=== PATIENT | female | born 1940 | race Caucasian/White ===

== ENCOUNTER 2018-04-24 19:05 | Emergency (ER) | payer OTHER ==
--- OUTSIDE RECORDS SUMMARY | 2018-04-24 19:08 | XMS REPORT | Clinical Summary ---
:1940 Author Organization [facility] Address [address] [place] [id number] Care Team Providers Name Role Phone Bud Osborne MD Primary Care Provider Allergies Active Allergy Reactions Severity Noted Date Comments Codeine GI Intolerance 08/25/2016 Nausea, vomiting Current Medications Prescription Sig. Disp. Refills Start Date End Date Status citalopram (CeleXA) 40 MG Take 20 mg by mouth 10/31/2015 Active tablet daily. omeprazole (PriLOSEC) 40 Take 40 mg by mouth Active MG capsule daily. sotalol (BETAPACE) 80 MG Take 40 mg by mouth Active tablet 2 (two) times a day. calcium carbonate-vitamin Take 1 tablet by Active D3 500 mg-200 unit per mouth 2 (two) times tablet a day with meals. ALPRAZolam (XANAX) 0.5 MG Take 0.25 mg by Active tablet mouth nightly as needed for sleep. aspirin (ECOTRIN) 81 MG Take 81 mg by mouth Active enteric coated tablet daily. Active Problems Problem Noted Date Colitis 08/25/2016 Urinary tract infection 08/23/2015 Dysuria 08/23/2015 Family History Medical History Relation Name Comments Alzheimer's disease Father Dementia Mother Endometrial cancer Mother Relation Name Status Comments Father Mother Alive Social History Tobacco Use Types Packs/Day Years Used Date Former Smoker Cigarettes Quit: 1979 Smokeless Tobacco: Never Used Tobacco Cessation: Counseling Given: No Alcohol Use Drinks/Week oz/Week Comments Yes 1 Glasses of wine 0.6 socially Sex Assigned at Date Recorded Not on file Last Filed Vital Signs Not on file Plan of Treatment Health Maintenance Due Date Last Done Comments SHINGRIX VACCINE (#1) 02/21/1988 ZOSTER VACCINE 1998 PNEUMOCOCCAL POLYSACCHARIDE VACCINE AGE 65 AND OVER 2003 PNEUMOCOCCAL-13 2003 INFLUENZA VACCINE 01/22/2018 Implants Implanted Type Area Lime Sludge Kiln Operator Device Expiration Model / Identifier Date Serial / Lot Stent Uretl S-Flx Kwart Retro-Inject 6fr 24cm - [id number] Peripheral or N/A: MISTY [employer] 06/05/2019 [id number] / Implanted: 09/07/2016 (Quantity not on file) Biliary Stents N/A / [id number] Implant Bulking Agent Coaptite Injctbl 1ml - [id number] Urological N/A: [facility] [id number] / Implanted: 05/23/2016 (Quantity not on file) Implants or N/A UROLOGY/ GYNECOL / Sets OGY Implant Bulking Agent Coaptite Injctbl 1ml - [id number] Urological N/A: [facility] [id number] / Implanted: 05/23/2016 (Quantity not on file) Implants or N/A UROLOGY/ GYNECOL / Sets OGY Results Not on fileafter 04/23/2017 Insurance Payer Benefit Plan / Group Subscriber ID Type Phone Address MEDICARE MEDICARE PART A AND B xxxxxxxxxx Medicare [place], [place] [employer] xxxxxxxxxx Commercial [phone] [address]
[2018-04-24] MEDS ORDERED: NA CHLORIDE 0.9% 1,000 ML ONE (20:02)
[2018-04-24] MEDS ORDERED: METOPROLOL TARTRATE 5 MG/5 ML INJ IV ONE (20:02)
[2018-04-24 20:10] LABS: Absolute Lymphocytes (CBC) 3.8 K/uL (0.7-4.9); Absolute Monocytes 1.2 K/uL (0.1-1.3); Absolute Neutrophil 4.3 K/uL (1.8-8.0); Hematocrit 36.4 % (36.0-45.0); Lymphocytes % 38.9 % (15.3-44.8); MCH 28.9 pg (27.0-35.0); MCV 87.1 fL (80-100); MPV 8.1 fL (7.6-11.3); Monocytes % 12.6 % (3.3-12.3); RBC Red Blood Cell Count 4.18 M/uL (3.86-4.86)
[2018-04-24 20:14] LABS: Protime INR 0.97
[2018-04-24 20:31] LABS: ALT/SGPT 19 U/L (12-78); AST/SGOT 15 U/L (15-37); Albumin 3.5 g/dL (3.4-5.0); Alkaline Phosphatase 87 U/L (45-117); BUN Blood Urea Nitrogen 12 mg/dL (7-18); Bicarbonate 29 mmol/L (21-32); Bilirubin Total 0.3 mg/dL (0.2-1.0); Glucose Level 92 mg/dL (74-106); Magnesium 2.3 mg/dL (1.8-2.4); NT PRO-BNP 647 pg/mL (<450); Potassium 3.8 mmol/L (3.5-5.1); Protein, Total 7.5 g/dL (6.4-8.2); Sodium Level 142 mmol/L (136-145); Troponin (Emerg Dept Use Only) < 0.02 ng/mL (0.0-0.045)
--- NOTE | 2018-04-24 20:53 | RAD REPORT ---
EXAM DESCRIPTION: RAD - Chest Single View - 04/24/2018 8:28 pm CLINICAL HISTORY: Atrial fibrillation, chest tightness COMPARISON: July 2016 TECHNIQUE: AP portable chest image was obtained 2021 hours . FINDINGS: No peripheral mass or consolidation. Vasculature within normal limits. Interstitial markin gs are similar to slightly increased over comparison. Heart size is normal. No measurable pleural eff usion and no pneumothorax. No acute bony abnormality seen. No acute aortic findings suspected. IMPRESSION: No focal mass, consolidation or significant failure finding. Interstitial markings are similar to slightly increased over comparison. Minimal interstitial edema o r infiltrate possible.
[2018-04-24 20:54] LABS: Urine Blood TRACE (NEG); Urine Glucose NEGATIVE (NEG); Urine Protein NEGATIVE (NEG); Urine Specific Gravity 1.015 (1.005-1.030)
--- NOTE | 2018-04-24 21:37 | EDPHYS ---
Physician Documentation [facility] Name: Paty Hendricks Age: 78 yrs Sex: Female : 1940 Arrival Date: 04/24/2018 Time: 19:07 Bed 30 Private MD: Gallito Osborne C ED Physician Missael Hernandez HPI: 04/24 21:24 This 78 yrs old Female presents to ER via Ambulatory with complaints of ps1 Irregular Pulse. 21:24 patient has a history of paroxysmal atrial fibrillation. Patient went to get laser fat ps1 removal and started having palpitations and noticed her HR was elevated on wearable HR monitor. She is supposed to be on sotalol 80mg and is taking 40mg and 81mg ASA daily. Patient managed by Dr. Araiza. On IV stick, patient spontaneously converted to NSR. . Historical: - Allergies: 19:15 Codeine; aj 19:15 Macrobid; aj - Home Meds: 19:39 citalopram 40 mg tab 1 tab once daily [Active]; Flonase 50 mcg/actuation Nasal spsn 1 mg2 spray 2 times per day [Active]; Multi-Vitamin HP/Minerals Oral daily [Active]; nitrofurantoin macrocrystal 100 mg Oral cap 1 cap once daily [Active]; PrimaCal daily [Active]; Sorine 80 mg Oral tab 0.5 tab 2 times per day [Active]; - PMHx: 19:15 Atrial Fib; Depression; aj - Immunization history:: Adult Immunizations up to date. - Social history:: Smoking status: Patient/guardian denies using tobacco. - Ebola Screening: : Patient negative for fever greater than or equal to 101.5 degrees Fahrenheit, and additional compatible Ebola Virus Disease symptoms Patient denies exposure to infectious person Patient denies travel to an Ebola-affected area in the 21 days before illness onset No symptoms or risks identified at this time. ROS: 21:24 Constitutional: Negative for fever, chills, and weight loss, Eyes: Negative for injury, ps1 pain, redness, and discharge, Respiratory: Negative for shortness of breath, cough, wheezing, and pleuritic chest pain, Abdomen/GI: Negative for abdominal pain, nausea, vomiting, diarrhea, and constipation, Back: Negative for injury and pain, MS/Extremity: Negative for injury and deformity, Skin: Negative for injury, rash, and discoloration, Neuro: Negative for headache, weakness, numbness, tingling, and seizure. 21:24 Cardiovascular: Positive for palpitations. Exam: 21:24 Constitutional: This is a well developed, well nourished patient who is awake, alert, ps1 and in no acute distress. Head/Face: Normocephalic, atraumatic. Eyes: Pupils equal round and reactive to light, extra-ocular motions intact. Lids and lashes normal. Conjunctiva and sclera are non-icteric and not injected. Chest/axilla: Normal chest wall appearance and motion. Nontender with no deformity. No lesions are appreciated. Respiratory: Lungs have equal breath sounds bilaterally, clear to auscultation and percussion. No rales, rhonchi or wheezes noted. No increased work of breathing, no retractions or nasal flaring. Abdomen/GI: Soft, non-tender, with normal bowel sounds. No distension or tympany. No guarding or rebound. No evidence of tenderness throughout. Skin: Warm, dry with normal turgor. Normal color with no rashes, no lesions, and no evidence of cellulitis. MS/ Extremity: Pulses equal, no cyanosis. Neurovascular intact. Full, normal range of motion. Neuro: Awake and alert, GCS 15, oriented to person, place, time, and situation. Cranial nerves II-XII grossly intact. Sensory grossly intact. Psych: Awake, alert, with orientation to person, place and time. Behavior, mood, and affect are within normal limits. 21:24 Cardiovascular: Rate: tachycardic, Rhythm: irregularly irregular, Pulses: no pulse deficits are appreciated. Vital Signs: 19:15 BP 135 / 82; Pulse 103; Resp 20; Temp 97.5; Pulse Ox 98% on R/A; Weight 83.91 kg; aj Height 5 ft. 7 in. (170.18 cm); 20:11 BP 159 / 99; Pulse 62; Resp 18; Pulse Ox 100% on R/A; Pain 0/10; mg2 21:45 BP 145 / 75; Pulse 62; Resp 18; Pulse Ox 100% on R/A; Pain 0/10; mg2 19:15 Body Mass Index 28.97 (83.91 kg, 170.18 cm) aj MDM: 19:22 Patient medically screened. ps1 20:06 Data reviewed: vital signs, nurses notes, lab test result(s), EKG, and as a result, I ps1 will discharge patient. Data interpreted: pharmaceutical officer: rate is 61 beats/min, rhythm is normal sinus rhythm, Pulse oximetry:. Counseling: I had a detailed discussion with the patient and/or guardian regarding: the historical points, exam findings, and any diagnostic results supporting the discharge/admit diagnosis, the need for outpatient follow up, for definitive care, a glass sagger. Special discussion: Based on the patient's history, exam, and Dx evaluation, there is no indication for emergent intervention or inpatient Tx. It is understood by the patient/guardian that if the Sx's persist or worsen they need to return immediately for re-evaluation. 04/24 19:49 Order name: CBC with Diff; Complete Time: 20:15 ps1 04/24 19:49 Order name: Magnesium; Complete Time: 20:44 ps1 04/24 19:49 Order name: NT PRO-BNP; Complete Time: 20:44 ps1 04/24 19:49 Order name: PT-INR; Complete Time: 20:44 ps1 04/24 19:49 Order name: Troponin (emerg Dept Use Only); Complete Time: 20:44 ps1 04/24 19:49 Order name: CMP; Complete Time: 20:44 ps1 04/24 19:49 Order name: XRAY Chest (1 view); Complete Time: 21:02 ps1 04/24 19:49 Order name: EKG; Complete Time: 19:50 ps1 04/24 19:49 Order name: Cardiac monitoring; Complete Time: 19:53 ps1 04/24 19:49 Order name: EKG - Nurse/Tech; Complete Time: 19:53 ps1 04/24 19:49 Order name: IV Saline Lock; Complete Time: 19:53 ps1 04/24 20:05 Order name: Urine Dipstick--Ancillary (enter results); Complete Time: 21:02 ms 04/24 19:49 Order name: Labs collected and sent; Complete Time: 19:53 ps1 04/24 19:49 Order name: O2 Per Protocol; Complete Time: 19:53 ps1 04/24 19:49 Order name: O2 Sat Monitoring; Complete Time: 19:53 ps1 04/24 19:49 Order name: Urine Dipstick-Ancillary (obtain specimen); Complete Time: 20:10 ps1 04/24 20:12 Order name: EKG - Nurse/Tech; Complete Time: 20:12 mg2 EC:27 Rate is 116 beats/min. Rhythm is irregularly irregular. QRS [place] is Normal. QRS ps1 interval is prolonged. QT interval is normal. No Q waves. ST Segment is depressed in leads V3, V4, V5. Clinical impression: Atrial Fibrillation and Afib RVR. 20:06 Rate is 57 beats/min. Rhythm is regular. QRS [place]ams is Normal. CO interval is normal. QRS ps1 interval is normal. QT interval is normal. Q waves are Old. T waves are Normal. No ST changes noted. Clinical impression: Normal ECG and Sinus bradycardia. Interpreted by me. Administered Medications: 20:10 Drug: NS 0.9% 1000 ml Route: IV; Rate: 1 bolus; Site: left antecubital; mg2 21:00 Follow up: Response: No adverse reaction; IV Status: Completed infusion mg2 20:12 Not Given (Hemodynamic Parameters): Metoprolol 5 mg IVP once; Hold for SBP <100 or HR mg2 <60. Disposition: 04/24/18 21:36 Discharged to Home. Impression: Atrial fibrillation and flutter. - Condition is Stable. - Discharge Instructions: Atrial Fibrillation, [id number]. - Medication Reconciliation Form, Thank You Letter, Antibiotic Education, Prescription Opioid Use form. - Follow up: Gallito Osborne MD; When: 2 - 3 days; Reason: Recheck today's complaints, Continuance of care, Re-evaluation by your physician. Follow up: Hayden Araiza MD; When: Tomorrow; Reason: Further diagnostic work-up, Recheck today's complaints, Continuance of care, Re-evaluation by your physician. Follow up: Emergency Department; When: As needed; Reason: Trouble breathing, Worsening of condition. - Problem is an acute exacerbation. - Symptoms are resolved. Signatures: Dispatcher [employer] EDShawna Kaur RN RN aj Singer, Phillip, MD MD ps1 Joseph Cui RN RN mg2 Corrections: (The following items were deleted from the chart) 21:49 21:36 04/24/2018 21:36 Discharged to Home. Impression: Atrial fibrillation and flutter. mg2 Condition is Stable. Forms are Medication Reconciliation Form, Thank You Letter, Antibiotic Education, Prescription Opioid Use. Follow up: Gallito Osborne; When: 2 - 3 days; Reason: Recheck today's complaints, Continuance of care, Re-evaluation by your physician. Follow up: Hayden Araiza; When: Tomorrow; Reason: Further diagnostic work-up, Recheck today's complaints, Continuance of care, Re-evaluation by your physician. Follow up: Emergency Department; When: As needed; Reason: Trouble breathing, Worsening of condition. Problem is an acute exacerbation. Symptoms are resolved. ps1
--- NOTE | 2018-04-24 21:37 | ER ---
Nurse's Notes [facility] Name: Paty Hendricks Age: 78 yrs Sex: Female : 1940 Arrival Date: 04/24/2018 Time: 19:07 Bed 30 Private MD: Gallito Osborne C Diagnosis: Atrial fibrillation and flutter Presentation: 04/24 19:14 Presenting complaint: Patient states: Palpitations all day. Reports tightness in chest. aj Transition of care: patient was not received from another setting of care. Onset of symptoms was April 24, 2018. Risk Assessment: Do you want to hurt yourself or someone else? Patient reports no desire to harm self or others. Initial Sepsis Screen: Does the patient meet any 2 criteria? No. Patient's initial sepsis screen is negative. Does the patient have a suspected source of infection? No. Patient's initial sepsis screen is negative. Care prior to arrival: None. 19:14 Method Of Arrival: Ambulatory aj 19:14 Acuity: NANCY 3 aj Triage Assessment: 19:15 General: Appears in no apparent distress. comfortable, Behavior is calm, cooperative, aj appropriate for age. Pain: Denies pain. Neuro: Level of Consciousness is awake, alert, obeys commands, Oriented to person, place, time, situation, Appropriate for age. Cardiovascular: Reports palpitations, Denies chest pain, Capillary refill < 3 seconds in bilateral fingers Patient's skin is warm and dry. Respiratory: Airway is patent Respiratory effort is even, unlabored, Respiratory pattern is regular, symmetrical. Derm: Skin is intact, is healthy with good turgor, Skin is pink, warm \T\ dry. normal. Historical: - Allergies: 19:15 Codeine; aj 19:15 Macrobid; aj - Home Meds: 19:39 citalopram 40 mg tab 1 tab once daily [Active]; Flonase 50 mcg/actuation Nasal spsn 1 mg2 spray 2 times per day [Active]; Multi-Vitamin HP/Minerals Oral daily [Active]; nitrofurantoin macrocrystal 100 mg Oral cap 1 cap once daily [Active]; PrimaCal daily [Active]; Sorine 80 mg Oral tab 0.5 tab 2 times per day [Active]; - PMHx: 19:15 Atrial Fib; Depression; aj - Immunization history:: Adult Immunizations up to date. - Social history:: Smoking status: Patient/guardian denies using tobacco. - Ebola Screening: : Patient negative for fever greater than or equal to 101.5 degrees Fahrenheit, and additional compatible Ebola Virus Disease symptoms Patient denies exposure to infectious person Patient denies travel to an Ebola-affected area in the 21 days before illness onset No symptoms or risks identified at this time. Screenin:36 Abuse screen: Denies threats or abuse. Denies injuries from another. Nutritional mg2 screening: No deficits noted. Tuberculosis screening: No symptoms or risk factors identified. Fall Risk None identified. Assessment: 19:36 General: Appears in no apparent distress. comfortable, Behavior is calm, cooperative. mg2 Pain: Complains of pain in chest Pain does not radiate. Quality of pain is described as tightness Pain began gradually, this morning Is intermittent. Neuro: Level of Consciousness is awake, alert, obeys commands, Oriented to person, place, time, situation. Cardiovascular: Capillary refill < 3 seconds Patient's skin is warm and dry. Respiratory: Airway is patent Respiratory effort is even, unlabored, Respiratory pattern is regular, symmetrical. GI: No signs and/or symptoms were reported involving the gastrointestinal system. : No signs and/or symptoms were reported regarding the genitourinary system. EENT: No signs and/or symptoms were reported regarding the EENT system. Derm: Skin is intact, is healthy with good turgor, Skin is pink, warm \T\ dry. normal. Musculoskeletal: No signs and/or symptoms reported regarding the musculoskeletal system. Vital Signs: 19:15 BP 135 / 82; Pulse 103; Resp 20; Temp 97.5; Pulse Ox 98% on R/A; Weight 83.91 kg; aj Height 5 ft. 7 in. (170.18 cm); 20:11 BP 159 / 99; Pulse 62; Resp 18; Pulse Ox 100% on R/A; Pain 0/10; mg2 21:45 BP 145 / 75; Pulse 62; Resp 18; Pulse Ox 100% on R/A; Pain 0/10; mg2 19:15 Body Mass Index 28.97 (83.91 kg, 170.18 cm) ED Course: 19:07 Patient arrived in ED. ds1 19:07 Gallito Osborne MD is Private Physician. ds1 19:14 Triage completed. aj 19:16 Arm band placed on left wrist. Patient placed in an exam room. aj 19:22 Missael Hernandez MD is Attending Physician. ps1 19:26 Joseph Cui, RN is Primary Nurse. mg2 19:37 Patient has correct armband on for positive identification. trust and estates paralegal on. Pulse mg2 ox on. NIBP on. 19:39 No provider procedures requiring assistance completed. Patient maintains SpO2 mg2 saturation greater than 95% on room air. 19:40 Inserted saline lock: 20 gauge in left antecubital area, using aseptic technique. Blood mg2 collected. 20:27 XRAY Chest (1 view) In Process Unspecified. EDMS 21:36 Gallito Osborne MD is Referral Physician. ps1 21:36 Hayden Araiza MD is Referral Physician. ps1 21:47 IV discontinued, intact, bleeding controlled, No redness/swelling at site. Pressure mg2 dressing applied. Administered Medications: 20:10 Drug: NS 0.9% 1000 ml Route: IV; Rate: 1 bolus; Site: left antecubital; mg2 21:00 Follow up: Response: No adverse reaction; IV Status: Completed infusion mg2 20:12 Not Given (Hemodynamic Parameters): Metoprolol 5 mg IVP once; Hold for SBP <100 or HR mg2 <60. Outcome: 21:36 Discharge ordered by MD. ps1 21:48 Discharged to home ambulatory. mg2 21:48 Condition: stable 21:48 Discharge instructions given to patient, family, Instructed on discharge instructions, follow up and referral plans. Demonstrated understanding of instructions, follow-up care. 21:49 Patient left the ED. mg2 Signatures: Dispatcher [employer] EDGA Shawna Benitez, RN RN Madison Nicholson ds1 Missael Hernandez MD MD ps1 Joseph Cui, MING RN mg2
--- NOTE | 2018-04-25 08:58 | EKG ---
Test Date: 2018-04-24 Test Time: 19:27:01 Yard Crane Operator: MEASUREMENT RESULTS: Intervals: Rate: 116 OK: QRSD: 118 QT: 380 QTc: 528 [place]: P: OK: QRS: -47 T: 24 INTERPRETIVE STATEMENTS: Atrial fibrillation with rapid ventricular response Incomplete right bundle branch block Left axis Nonspecific ST and T wave abnormality, probably digitalis effect Abnormal ECG Compared to ECG 08/15/2016 07:27:09 Incomplete right bundle-branch block now present ST (T wave) deviation now present Sinus bradycardia no longer present Atrial premature complex(es) no longer present Electronically Signed On 04-25-18 08:58:26 CDT by Toro Phan
--- NOTE | 2018-04-25 08:58 | EKG ---
Test Date: 2018-04-24 Test Time: 20:06:26 Patient Relations Coordinator: MEASUREMENT RESULTS: Intervals: Rate: 57 MA: 174 QRSD: 122 QT: 470 QTc: 457 [place]: P: -1 MA: 174 QRS: -26 T: 23 INTERPRETIVE STATEMENTS: Sinus bradycardia Incomplete right bundle branch block Abnormal ECG Compared to ECG 04/24/2018 19:27:01 Myocardial infarct finding now present Atrial fibrillation no longer present Left anterior fascicular block no longer present ST (T wave) deviation no longer present Electronically Signed On 04-25-18 08:57:55 CDT by Toro Phan
== END 2018-04-24 21:49 | disposition home or self-care (01) ==
LOC: ER 19:05
DX: I48.91 Unspecified atrial fibrillation (principal); I48.92 Unspecified atrial flutter
CPT/HCPCS: 36415; 71045; 80053; 81003; 83735; 83880; 84484; 85025; 85610; 93005 ×2; 96360; 99285; J7030

== ENCOUNTER 2019-03-08 20:23 | Emergency (ER) | payer OTHER ==
--- OUTSIDE RECORDS SUMMARY | 2019-03-08 20:25 | XMS REPORT | Clinical Summary ---
:1940 Author Organization [facility] Address [address] [place] [address] Care Team Providers Name Role Phone Bud Osborne MD Primary Care Provider Allergies Active Allergy Reactions Severity Noted Date Comments Codeine GI Intolerance 08/25/2016 Nausea, vomiting Medications Medication Sig Dispensed Refills Start Date End Date Status citalopram (CeleXA) 40 Take 20 mg by 0 10/31/2015 Active MG tablet mouth daily. omeprazole (PriLOSEC) Take 40 mg by 0 Active 40 MG capsule mouth daily. sotalol (BETAPACE) 80 Take 40 mg by 0 Active MG tablet mouth 2 (two) times a day. calcium Take 1 tablet by 0 Active carbonate-vitamin D3 mouth 2 (two) 500 mg-200 unit per times a day with tablet meals. ALPRAZolam (XANAX) 0.5 Take 0.25 mg by 0 Active MG tablet mouth nightly as needed for sleep. aspirin (ECOTRIN) 81 Take 81 mg by 0 Active MG enteric coated mouth daily. tablet Active Problems Problem Noted Date Colitis 08/25/2016 [...] oz/Week Comments Yes 1 Glasses of wine 1.0 socially Sex Assigned at Date Recorded Not on file Job Start Date Occupation Industry Not on file Not on file Not on file Travel History Travel Start Travel End No recent travel history available. Last Filed Vital Signs Not on file Plan of Treatment Health Maintenance Due Date Last Done Comments SHINGLES VACCINES (#1) 02/21/1988 65+ PNEUMOCOCCAL VACCINE (1 of 2 - PCV13) 2003 INFLUENZA VACCINE 01/22/2019 Implants Implanted Type Area Mower Mechanic Device Shelf Model / Identifier Expiration Serial / Date Lot Stent Mateo S-Flx Kwart Retro-Inject 6fr 24cm - [id number] Peripheral or N/A: [employer] 06/05/2019 [id number] / Implanted: 09/07/2016 at [facility] (Quantity not on file) Biliary Stents N /A / [id number] Implant Bulking Agent Coaptite Injctbl 1ml - [id number] Urological N/A: [facility] [id number] / Implanted: 05/23/2016 at [facility] (Quantity not on file) Implants or N/A UROLOGY/GYNECOL / Sets OGY Implant Bulking Agent Coaptite Injctbl 1ml - [id number] Urological N/A: [facility] [id number] / Implanted: 05/23/2016 at [facility] (Quantity not on file) Implants or N/A UROLOGY/GYNECOL / Sets OGY Results Not on fileafter 03/07/2018 Insurance Payer Benefit Plan / Subscriber ID Effective Dates Phone Address Type Group MEDICARE MEDICARE PART A xxxxxxxxxx 2003-[place], [place] Medicare AND B t [employer] xxxxxxxxxx 2016-[employer] t Advance Directives For more information, please contact: [phone] Code Status Date Activated Date Inactivated Comments Full Code 08/25/2016 11:05 AM 08/30/2016 12:29 PM Code Status decision reached by: Patient
[2019-03-08 21:05] LABS: Absolute Lymphocytes (CBC) 3.2 K/uL (0.7-4.9); Basophils % 1.2 % (0-1.3); Hematocrit 39.5 % (36.0-45.0); Lymphocytes % 29.5 % (15.3-44.8); RBC Red Blood Cell Count 4.34 M/uL (3.86-4.86)
[2019-03-08 21:07] LABS: Protime INR 0.96
[2019-03-08 21:23] LABS: ALT/SGPT 19 U/L (12-78); AST/SGOT 14 U/L (15-37); Albumin 3.6 g/dL (3.4-5.0); Alkaline Phosphatase 85 U/L (45-117); BUN Blood Urea Nitrogen 18 mg/dL (7-18); Bicarbonate 27 mmol/L (21-32); Bilirubin Direct 0.1 mg/dL (0-0.2); Bilirubin Total 0.3 mg/dL (0.2-1.0); Glucose Level 104 mg/dL (74-106); Magnesium 1.9 mg/dL (1.8-2.4); NT PRO-BNP 389 pg/mL (<450); Potassium 4.1 mmol/L (3.5-5.1); Protein, Total 7.6 g/dL (6.4-8.2); Sodium Level 142 mmol/L (136-145); Troponin (Emerg Dept Use Only) < 0.02 ng/mL (0.0-0.045)
[2019-03-08] MEDS ORDERED: ONDANSETRON 4 MG/2 ML VIAL ONE (21:30)
[2019-03-08] MEDS ORDERED: MIDAZOLAM HCL 2 MG/2 ML INJ ONE (21:33)
[2019-03-08] MEDS ORDERED: FENTANYL CITR 100 MCG/2 ML ONE (21:33)
[2019-03-08] MEDS ORDERED: NA CHLORIDE 0.9% 1,000 ML ONE (23:08)
[2019-03-08] MEDS ORDERED: APIXABAN 5 MG TABLET ONE (23:57)
--- NOTE | 2019-03-09 00:08 | ER ---
Nurse's Notes [facility] Name: Paty Hendricks Age: 79 yrs Sex: Female : 1940 Arrival Date: 03/08/2019 Time: 20:29 Bed 5 Private MD: Diagnosis: Atrial fibrillation and flutter Presentation: 03/08 20:30 Presenting complaint: Patient states: heart rate has been up and down all day starting dm5 about 1330, 240 mg sotalol over 6 hours. normally takes 40 mg per day. Pt states that Dr. Adams told her to take multiple doses of Sotalol when this happens. 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 Transition of care: patient was not received from another setting of care. Onset of symptoms was March 08, 2019. Risk Assessment: Do you want to hurt yourself or someone else? Patient reports no desire to harm self or others. Initial Sepsis Screen: Does the patient meet any 2 criteria? No. Patient's initial sepsis screen is negative. Does the patient have a suspected source of infection? No. Patient's initial sepsis screen is negative. Care prior to arrival: None. 20:30 Method Of Arrival: Ambulatory dm5 20:30 Acuity: NANCY 2 dm5 Historical: - Allergies: 20:34 Codeine; dm5 20:34 Macrobid; dm5 20:34 seasonal allergies; dm5 - PMHx: 20:34 Atrial Fib; Depression; dm5 - PSHx: 20:34 back surgey; Tonsillectomy; Hysterectomy; Knee surgery; dm5 - Immunization history:: Adult Immunizations. - Social history:: Smoking status: Patient/guardian denies using tobacco. - Ebola Screening: : Patient negative for fever greater than or equal to 101.5 degrees Fahrenheit, and additional compatible Ebola Virus Disease symptoms Patient denies exposure to infectious person Patient denies travel to an Ebola-affected area in the 21 days before illness onset. Screenin:11 Abuse screen: Denies threats or abuse. Denies injuries from another. Nutritional rr5 screening: No deficits noted. Tuberculosis screening: No symptoms or risk factors identified. Fall Risk IV access (20 points). Total Choudhary Fall Scale indicates No Risk (0-24 pts). Assessment: 20:40 General: Appears in no apparent distress. comfortable, Behavior is calm, cooperative, rr5 appropriate for age. 20:40 Pain: Complains of pain in chest Pain does not radiate. Pain Quality of pain is rr5 described as pounding Pain began suddenly, Is intermittent. Neuro: Level of Consciousness is awake, alert, obeys commands, Oriented to person, place, time, situation, Appropriate for age Cardiovascular: Reports palpitations, i feel my heart beat getting fast. Capillary refill < 3 seconds Patient's skin is warm and dry. Rhythm is atrial fibrillation. Respiratory: Airway is patent Respiratory effort is even, unlabored, Respiratory pattern is regular, symmetrical. GI: No signs and/or symptoms were reported involving the gastrointestinal system. : No signs and/or symptoms were reported regarding the genitourinary system. EENT: No signs and/or symptoms were reported regarding the EENT system. Derm: Skin is intact, Skin temperature is warm. Musculoskeletal: Circulation, motion, and sensation intact. Capillary refill < 3 seconds. 20:40 Pain: Pain currently is 0 out of 10 on a pain scale. rr5 21:05 Reassessment: conscious sedation and cardioversion explained by ed provider, consent rr5 signed. 22:18 Reassessment: Patient appears in no apparent distress at this time. Patient is alert, rr5 oriented x 3, equal unlabored respirations, skin warm/dry/pink. conscious sedation and cardioversion started navi ESCALERA at beside. 23:05 Reassessment: BP 82 / 64mmHg rechecked ED provider aware with order made and carried rr5 out. 23:10 Reassessment: Reassessment: from non re breather mask to nasal cannula. O2 saturation rr5 98%. 23:55 Reassessment: Patient appears in no apparent distress at this time. Patient is alert, rr5 oriented x 3, equal unlabored respirations, skin warm/dry/pink. awake, conscious and coherent chatting with her distribution analyst no complaints made. oxygen discontiniued. Vital Signs: 20:34 BP 126 / 78; Pulse 81; Resp 18; Pulse Ox 97% on R/A; Weight 87.54 kg (R); Height 5 ft. dm5 6 in. (167.64 cm); Pain 0/10; 20:34 Temp 98.3; dm5 22:18 BP 110 / 72; Pulse 120; Resp 20; Temp 97.4; Pulse Ox 99% on 15% Non-rebreather mask; rr5 Pain 0/10; 22:18 rr5 23:52 BP 109 / 69; Pulse 101; Resp 18; Pulse Ox 97% on R/A; ea 03/09 00:10 BP 103 / 70; Pulse 98; Resp 16; Temp 97.8; Pulse Ox 100% on R/A; rr5 03/08 20:34 Body Mass Index 31.15 (87.54 kg, 167.64 cm) dm5 03/08 20:34 HR ranging from 35 to 125 on pulse ox. EKG done now dm5 22:18 succeeding VS please see attached cconscious sedation assessment form. rr5 ED Course: 20:29 Patient arrived in ED. dm5 20:33 Triage completed. dm5 20:34 Arm band placed on right wrist. Patient placed in an exam room, on a stretcher. dm5 20:36 EKG completed in triage. Results shown to MD. dm5 20:38 Navi Mcallister PA is PHCP. jr8 20:38 Greg Vaz MD is Attending Physician. jr8 20:40 Amrit Painting RN is Primary Nurse. rr5 20:54 Inserted saline lock: 20 gauge in left antecubital area, using aseptic technique. Blood rr5 collected. 20:55 Patient has correct armband on for positive identification. Placed in gown. Bed in low rr5 position. Call light in reach. Side rails up X2. boiler operator on. Pulse ox on. NIBP on. 21:26 Patient maintains SpO2 saturation greater than 95% on room air. rr5 22:20 Assist provider with cardioversion (synchronized) with pads, with 200 joules X 1. Set rr5 up for procedure. Performed by Navi ESCALERA Monitored with cardiac rehabilitation program director, pulse ox, Patient tolerated well. 22:34 Assist provider with cardioversion (synchronized) with pads, with 250 joules X 1. Set rr5 up for procedure. Performed by Navi ESCALERA Monitored with cardiac rehabilitation program director, pulse ox, Patient tolerated well. EKG done, by ED staff, reviewed by Navi ESCALERA. 03/09 00:05 Hayden Araiza MD is Referral Physician. jr8 00:25 IV discontinued, intact, bleeding controlled, No redness/swelling at site. Pressure rr5 dressing applied. 04:42 XRAY Chest (1 view) In Process Unspecified. EDMS Administered Medications: 03/08 22:18 Drug: fentaNYL (PF) 50 mcg {Note: conscious sedation,for cardioversion.} Route: IVP; rr5 Site: left antecubital; 22:18 Follow up: rass 0 rr5 22:19 Drug: Versed 2 mg {Note: rass 0 conscious sedation; cardioversion.} Route: IVP; Site: rr5 left antecubital; 23:20 Follow up: Response: No adverse reaction; RASS: Alert and Calm (0) rr5 22:25 Drug: Versed 1 mg {Note: rass -2 for sedation; cardioversion..} Route: IVP; Site: left rr5 antecubital; 23:25 Follow up: Response: No adverse reaction; RASS: Alert and Calm (0) rr5 23:05 Drug: NS 0.9% 500 ml Route: IV; Rate: bolus; Site: left antecubital; rr5 23:52 Follow up: Response: No adverse reaction; IV Status: Completed infusion; IV Intake: rr5 500ml 03/09 00:05 Drug: Eliquis 5 mg Route: PO; rr5 00:25 Follow up: Response: No adverse reaction rr5 Intake: 03/08 23:52 IV: 500ml; Total: 500ml. rr5 Outcome: 03/09 00:05 Discharge ordered by jr8 00:25 Discharged to home via wheelchair, with family. rr5 00:25 Condition: stable 00:25 Discharge instructions given to patient, family, Instructed on discharge instructions, follow up and referral plans. medication usage, Demonstrated understanding of instructions, follow-up care, medications, Prescriptions given X 1. 00:29 Patient left the ED. rr5 Signatures: Dispatcher [employer] EDMS Analia Cantu RN RN Navi Nice PA PA jr8 Laquita Alfredo RN RN ea Roque, Raymond RN RN rr5 Corrections: (The following items were deleted from the chart) 03/08 23:19 23:00 Reassessment: BP 82 / 64mmHg rechecked ED provider aware with order made and rr5 carried out. rr5
--- NOTE | 2019-03-09 00:10 | EDPHYS ---
Physician Documentation [facility] Name: Paty Hendricks Age: 79 yrs Sex: Female : 1940 Arrival Date: 03/08/2019 Time: 20:29 Bed 5 Private MD: ED Physician Greg Vaz HPI: 03/08 21:17 This 79 yrs old Female presents to ER via Ambulatory with complaints of jr8 Irregular Pulse. 21:17 The patient presents with a history of irregular heart beat, heart racing. Context: The jr8 symptoms occur at rest. Onset: The symptoms/episode began/occurred acutely, today. Duration: The patient or guardian reports a single episode, that is still ongoing. Modifying factors: The symptoms are aggravated by nothing. The symptoms are alleviated by nothing. Associated signs and symptoms: The patient has no apparent associated signs or symptoms. Severity of symptoms: At their worst the symptoms were mild in the emergency department the symptoms are unchanged. The patient has experienced similar episodes in the past, a few times. The patient has not recently seen a physician. Patient with history of paroxysmal atrial fibrillation. On sotalol for atrial fib. Hat And Cap Opener instructs her to take prescribed doses throughout the day when she has an episode. Stated that she did as she was told today but without relief. Stated that normally the medicine with jada the arrhythmia . Historical: - Allergies: 20:34 Codeine; dm5 20:34 Macrobid; dm5 20:34 seasonal allergies; dm5 - PMHx: 20:34 Atrial Fib; Depression; dm5 - PSHx: 20:34 back surgey; Tonsillectomy; Hysterectomy; Knee surgery; dm5 - Immunization history:: Adult Immunizations. - Social history:: Smoking status: Patient/guardian denies using tobacco. - Ebola Screening: : Patient negative for fever greater than or equal to 101.5 degrees Fahrenheit, and additional compatible Ebola Virus Disease symptoms Patient denies exposure to infectious person Patient denies travel to an Ebola-affected area in the 21 days before illness onset. ROS: 21:17 Eyes: Negative for injury, pain, redness, and discharge, ENT: Negative for injury, jr8 pain, and discharge, Neck: Negative for injury, pain, and swelling, Respiratory: Negative for shortness of breath, cough, wheezing, and pleuritic chest pain, Abdomen/GI: Negative for abdominal pain, nausea, vomiting, diarrhea, and constipation, Back: Negative for injury and pain, MS/Extremity: Negative for injury and deformity, Skin: Negative for injury, rash, and discoloration, Neuro: Negative for headache, weakness, numbness, tingling, and seizure. 21:17 Cardiovascular: Positive for palpitations, Negative for chest pain, edema, orthopnea. Exam: 21:17 Eyes: Pupils equal round and reactive to light, extra-ocular motions intact. Lids and jr8 lashes normal. Conjunctiva and sclera are non-icteric and not injected. Cornea within normal limits. Periorbital areas with no swelling, redness, or edema. ENT: Nares patent. No nasal discharge, no septal abnormalities noted. Tympanic membranes are normal and external auditory canals are clear. Oropharynx with no redness, swelling, or masses, exudates, or evidence of obstruction, uvula midline. Mucous membranes moist. Neck: Trachea midline, no thyromegaly or masses palpated, and no cervical lymphadenopathy. Supple, full range of motion without nuchal rigidity, or vertebral point tenderness. No Meningismus. Respiratory: Lungs have equal breath sounds bilaterally, clear to auscultation and percussion. No rales, rhonchi or wheezes noted. No increased work of breathing, no retractions or nasal flaring. Abdomen/GI: Soft, non-tender, with normal bowel sounds. No distension or tympany. No guarding or rebound. No evidence of tenderness throughout. Back: No spinal tenderness. No costovertebral tenderness. Full range of motion. Skin: Warm, dry with normal turgor. Normal color with no rashes, no lesions, and no evidence of cellulitis. MS/ Extremity: Pulses equal, no cyanosis. Neurovascular intact. Full, normal range of motion. Neuro: Awake and alert, GCS 15, oriented to person, place, time, and situation. Cranial nerves II-XII grossly intact. Motor strength 5/5 in all extremities. Sensory grossly intact. Cerebellar exam normal. Normal gait. 21:17 Cardiovascular: Rate: tachycardic, Rhythm: irregularly irregular, Pulses: Pulses are 2+ in right radial artery and left radial artery. Heart sounds: normal, normal S1and S2, no S3 or S4, no murmur, no rub, no gallop, Edema: is not appreciated, JVD: is not appreciated. Vital Signs: 20:34 BP 126 / 78; Pulse 81; Resp 18; Pulse Ox 97% on R/A; Weight 87.54 kg (R); Height 5 ft. dm5 6 in. (167.64 cm); Pain 0/10; 20:34 Temp 98.3; dm5 22:18 BP 110 / 72; Pulse 120; Resp 20; Temp 97.4; Pulse Ox 99% on 15% Non-rebreather mask; rr5 Pain 0/10; 22:18 rr5 23:52 BP 109 / 69; Pulse 101; Resp 18; Pulse Ox 97% on R/A; ea 09 00:10 BP 103 / 70; Pulse 98; Resp 16; Temp 97.8; Pulse Ox 100% on R/A; rr5 09/15 20:34 Body Mass Index 31.15 (87.54 kg, 167.64 cm) dm5 / 20:34 HR ranging from 35 to 125 on pulse ox. EKG done now dm5 22:18 succeeding VS please see attached cconscious sedation assessment form. rr5 Procedures: 23:43 Cardioversion: (synchronized) using pacer pads, for treatment of A fib, with 200 joules jr8 X 1. 250 joules X 1. Post procedure rhythm is A fib, the patient tolerated the procedure well. Moderate sedation: Pre-procedure assessment: the patient has been NPO 4 hour(s) prior to arrival, ASA physical classification: II - mild/mod systemic disease that does not interfere with daily routines, Airway assessment: able to hyperextend neck, able to maintain airway, can open mouth without difficulty, Mallampati classification of tongue size: II - faucial pillars and soft palate can be visualized, but uvula is masked by the base of the tongue, Monitoring during procedure: security monitor, continuous pulse oximetry, nurse at bedside at all times, Medications employed: Fentanyl, 50 mcg(s), Versed, 3 mg(s), Post-procedure assessment: the patient is moderately sedated, Santana sedation score: 5 - sluggish response to a light glabellar tap, Respiratory status: even and unlabored, a reversal agent was not used. MDM: 20:40 Patient medically screened. jr8 23:43 Data reviewed: vital signs, nurses notes, lab test result(s), EKG, radiologic studies, [facility] plain films. Data interpreted: Pulse oximetry: on room air is 99 %. Interpretation: normal. Counseling: I had a detailed discussion with the patient and/or guardian regarding: the historical points, exam findings, and any diagnostic results supporting the discharge/admit diagnosis, lab results, radiology results, the need for outpatient follow up, a veterinary practitioner, to return to the emergency department if symptoms worsen or persist or if there are any questions or concerns that arise at home. ED course: Discussed with Dr. Araiza that synchronized cardioversion was unsuccessful. Otherwise hemodynamically stable and rate controlled at this time. Wants us to put patient on Eliquis and to have patient f/u with him on Saturday at 8:30 am in the office. Patient good with this. Instructions along with common adverse effects of Eliquis given to patient. If patient were to worsen at any point to come back to ED for further evaluation . 03/08 20:39 Order name: Basic Metabolic Panel [facility] 03/08 20:39 Order name: CBC with Diff [facility] 03/08 20:39 Order name: LFT's [facility] 03/08 20:39 Order name: Magnesium [facility] 03/08 20:39 Order name: NT PRO-BNP [facility] 03/08 20:39 Order name: PT-INR [facility] 03/08 20:39 Order name: Troponin (emerg Dept Use Only) [facility] 03/08 21:11 Order name: CBC with Automated Diff; Complete Time: 21:16 [facility] 03/08 21:11 Order name: Protime (+INR); Complete Time: 21:16 [facility] 03/08 21:24 Order name: Basic Metabolic Panel; Complete Time: 21:26 [facility] 03/08 21:24 Order name: Liver (Hepatic) Function; Complete Time: 21:26 [facility] 03/08 21:24 Order name: Troponin (Emerg Dept Use Only); Complete Time: 21:26 [facility] 03/08 21:24 Order name: NT PRO-BNP; Complete Time: 21:26 [facility] 03/08 21:25 Order name: Magnesium; Complete Time: 21:26 [facility] 03/08 20:39 Order name: XRAY Chest (1 view) [facility] 03/08 20:39 Order name: EKG; Complete Time: 20:41 03/08 20:39 Order name: Cardiac monitoring; Complete Time: 20:55 03/08 20:39 Order name: EKG - Nurse/Tech; Complete Time: 20:55 03/08 20:39 Order name: IV Saline Lock; Complete Time: 20:55 03/08 20:39 Order name: Labs collected and sent; Complete Time: 20:55 03/08 20:39 Order name: O2 Per Protocol; Complete Time: 20:55 03/08 20:39 Order name: O2 Sat Monitoring; Complete Time: 20:55 03/08 21:32 Order name: Conscious Sedation; Complete Time: 21:36 jr8 Administered Medications: 22:18 Drug: fentaNYL (PF) 50 mcg {Note: conscious sedation,for cardioversion.} Route: IVP; rr5 Site: left antecubital; 22:18 Follow up: rass 0 rr5 22:19 Drug: Versed 2 mg {Note: rass 0 conscious sedation; cardioversion.} Route: IVP; Site: rr5 left antecubital; 23:20 Follow up: Response: No adverse reaction; RASS: Alert and Calm (0) rr5 22:25 Drug: Versed 1 mg {Note: rass -2 for sedation; cardioversion..} Route: IVP; Site: left rr5 antecubital; 23:25 Follow up: Response: No adverse reaction; RASS: Alert and Calm (0) rr5 23:05 Drug: NS 0.9% 500 ml Route: IV; Rate: bolus; Site: left antecubital; rr5 23:52 Follow up: Response: No adverse reaction; IV Status: Completed infusion; IV Intake: rr5 500ml 03/09 00:05 Drug: Eliquis 5 mg Route: PO; rr5 00:25 Follow up: Response: No adverse reaction rr5 Disposition: 01:00 Co-signature as Attending Physician, Greg Vaz MD. rn Disposition: 03/09/19 00:05 Discharged to Home. Impression: Atrial fibrillation and flutter. - Condition is Stable. - Discharge Instructions: Atrial Fibrillation. - Prescriptions for Eliquis 5 mg Oral tablet - take 1 tablet by ORAL route 2 times per day; 20 tablet. - Medication Reconciliation Form, Thank You Letter, Antibiotic Education, Prescription Opioid Use form. - Follow up: Hayden Araiza MD; When: 03/10/2019; Reason: Recheck today's complaints, Continuance of care, Re-evaluation by your physician. - Problem is new. - Symptoms are unchanged. - Notes: Appointment is at 8:30 am This Saturday Continue Sotalol Signatures: Dispatcher [employer] EDMS Analia Cantu, RN RN dm5 Arpita Adames RN Greg Leung MD MD rn Roszak, Josh, PA PA jr8 Amrit Painting RN RN rr5 Corrections: (The following items were deleted from the chart) 00:29 00:05 03/09/2019 00:05 Discharged to Home. Impression: Atrial fibrillation and flutter. rr5 Condition is Stable. Forms are Medication Reconciliation Form, Thank You Letter, Antibiotic Education, Prescription Opioid Use. Follow up: Hayden Araiza; When: 03/10/2019; Reason: Recheck today's complaints, Continuance of care, Re-evaluation by your physician. Problem is new. Symptoms are unchanged. jr8
[2019-03-09 01:09] VITALS: TEMP 97.4
[2019-03-09 01:15] VITALS: BP 109/69; O2SAT 97
--- NOTE | 2019-03-09 08:15 | RAD REPORT ---
EXAM DESCRIPTION: Neha Single View03/08/2019 9:07 pm CLINICAL HISTORY: Shortness of breath COMPARISON: 2017 FINDINGS: The right hemidiaphragm remains elevated The lungs appear clear of acute infiltrate. The heart is normal size IMPRESSION: No acute abnormalities displayed
--- NOTE | 2019-03-09 11:32 | EKG ---
Test Date: 2019-03-08 Test Time: 22:35:32 Paper Folder: OTTONIEL MEASUREMENT RESULTS: Intervals: Rate: 117 PA: QRSD: 122 QT: 376 QTc: 524 [place]: P: PA: QRS: -54 T: 26 INTERPRETIVE STATEMENTS: Atrial fibrillation with rapid ventricular response Left axis deviation Nonspecific intraventricular conduction delay Nonspecific ST abnormality Abnormal ECG Compared to ECG 03/08/2019 20:37:11 Left-axis deviation now present Intraventricular conduction delay now present ST (T wave) deviation now present Left anterior fascicular block no longer present Myocardial infarct finding no longer present Electronically Signed On 03-09-19 11:30:46 CDT by Hayden Araiza
--- NOTE | 2019-03-09 11:33 | EKG ---
Test Date: 2019-03-08 Test Time: 20:37:11 Industrial Maintenance Mechanic: MEASUREMENT RESULTS: Intervals: Rate: 113 OR: QRSD: 120 QT: 280 QTc: 384 [place]: P: OR: QRS: -49 T: 28 INTERPRETIVE STATEMENTS: Atrial fibrillation with rapid ventricular response RSR' or QR pattern in V1 suggests right ventricular conduction delay Left anterior fascicular block Possible Anterior infarct, age undetermined Abnormal ECG Compared to ECG 04/24/2018 20:06:26 RSR' in V1 or V2 now present Left anterior fascicular block now present Myocardial infarct finding now present Sinus bradycardia no longer present Incomplete right bundle-branch block no longer present Electronically Signed On 03-09-19 11:30:53 CDT by Hayden Araiza
== END 2019-03-09 00:29 | disposition home or self-care (01) ==
LOC: ER 20:23
PROC: 5A2204Z Restoration of Cardiac Rhythm, Single (ICD-10-PCS; principal; 2019-03-09)
DX: I48.91 Unspecified atrial fibrillation (principal); I48.92 Unspecified atrial flutter; F32.9 Major depressive disorder, single episode, unspecified; Z88.5 Allergy status to narcotic agent; Z88.8 Allergy status to other drugs, medicaments and biological substances
CPT/HCPCS: 92960; 96361; 93005 ×2; 85025; 80048; 36415; 83735; 85610; 80076; 84484; 83880; 71045; 96375; 96374; 99291; 99292; J2250; J3010; J7030; J2405